=== PATIENT | male | born 1995 | race Caucasian/White ===

== ENCOUNTER → 2017-12-24 15:03 | Emergency (ER) | payer OTHER ==
[~2017-12-24 15:03] MED LIST: Ibuprofen TAB* 800 MG PO ONE
[2017-12-24 15:11] VITALS: BP 125/75
--- NOTE | 2017-12-24 17:02 | ED ---
Upper Extremity Pain - HPI Summary HPI Summary: Patient here with bilateral phalange pain status post getting hands caught in a windowsill is the window fell. He reports pain with abduction and abduction of his digits as well as flexion and extensionshe has bruising over the palmar and dorsal aspect of a few fingers with a laceration/abrasion/crush injury over the PIP joints of his right middle finger. Denies numbness tingling or weakness. TMs are up-to-date. Had ibuprofen around noon today - would like to have another. No previous injuries to hands/fingers and no other injuries to report today. - History of Current Complaint Chief Complaint: EDExtremityUpper Stated Complaint: INJURY TO HANDS Time Seen by Provider: 12/24/17 16:06 Hx Obtained From: Patient - Allergies/Home Medications Allergies/Adverse Reactions: Allergies Allergy/AdvReac Type Severity Reaction Status Date / Time No Known Allergies Allergy Verified 12/24/17 16:45 PMH/Surg Hx/FS Hx/Imm Hx Previously Healthy: Yes Endocrine/Hematology History: Denies: Hx Anticoagulant Therapy, Hx Blood Disorders - Immunization History Immunizations Up to Date: Yes Infectious Disease History: No Infectious Disease History: Denies: Traveled Outside the [place] in Last 30 Days - Family History Known Family History: Positive: None - Social History Occupation: Unemployed Lives: Dormitory/Roommates - assisted/nursing home x 4 months Alcohol Use: None Hx Substance Use: No Substance Use Type: Reports: None Hx Tobacco Use: Yes Smoking Status (MU): Current Every Day Smoker Amount Used/How Often: 4 cigs per day Review of Systems Constitutional: Negative Positive: no symptoms reported Positive: Arthralgia, Myalgia, Decreased ROM, Edema Positive: Bruising Neurological: Negative Psychological: Normal All Other Systems Reviewed And Are Negative: Yes Physical Exam Triage Information Reviewed: Yes Vital Signs On Initial Exam: Initial Vitals Temp Pulse Resp BP Pulse Ox 98.7 F 64 18 125/75 98 12/24/17 15:09 12/24/17 15:12/24/17 15:12/24/17 15:12/24/17 15:09 Vital Signs Reviewed: Yes Appearance: Positive: Well-Appearing, No Pain Distress, Well-Nourished Skin: Positive: Warm, Skin Color Reflects Adequate Perfusion, Dry Head/Face: Positive: Normal Head/Face Inspection Eyes: Positive: Normal, EOMI ENT: Positive: Hearing grossly normal Respiratory/Lung Sounds: Positive: Breath Sounds Present Cardiovascular: Positive: Pulses are Symmetrical in both Upper and Lower Extremities Musculoskeletal: Positive: Strength/ROM Intact - pain w/ flexion and full extension as well as adduction and abduction of fingers on B/L hands, Pain @ - areas with bruising are TTP, Other - carpals NTTP - FROM w/o pain. Negative: Limited @ Neurological: Positive: Normal, Sensory/Motor Intact, Alert, Oriented to Person Place, Time, CN Intact II-III Psychiatric: Positive: Normal Diagnostics - Vital Signs Vital Signs Temp Pulse Resp BP Pulse Ox 12/24/17 15:09 98.7 F 64 18 125/75 98 - Laboratory Lab Statement: Any lab studies that have been ordered have been reviewed, and results considered in the medical decision making process. Course/Dx - Diagnoses Provider Diagnoses: Finger contusion Discharge - Discharge Plan Condition: Stable Disposition: HOME Patient Education Materials: Contusion in Adults (ED) Referrals: Clarence MORRISON,J Luis Bishop [Primary Care Provider] - Additional Instructions: Rest, ice, elevate Take ibuprofen as needed for pain with food - may alternate with acetaminophen for pain Follow-up with medical staff in 1-2 weeks if pain persists *If you develop numbness, tingling, weakness in the meantime, seek medical attentions sooner
--- NOTE | 2017-12-24 17:44 | RAD ---
INDICATION: Bilateral hand pain COMPARISON: None TECHNIQUE: AP, lateral, and oblique views of each hand were obtained. FINDINGS: Left hand: The bony structures, joint spaces, and soft tissues are normal for age. Right hand: The bony structures, joint spaces, and soft tissues are normal IMPRESSION: NORMAL BILATERAL EXAMINATION.
== END | disposition home or self-care (01) ==
LOC: ED 15:03
DX: S60.022A Contusion of left index finger without damage to nail, initial encounter (principal); S60.021A Contusion of right index finger without damage to nail, initial encounter; S60.052A Contusion of left little finger without damage to nail, initial encounter; S60.051A Contusion of right little finger without damage to nail, initial encounter; S60.032A Contusion of left middle finger without damage to nail, initial encounter; S60.031A Contusion of right middle finger without damage to nail, initial encounter; S60.042A Contusion of left ring finger without damage to nail, initial encounter; S60.041A Contusion of right ring finger without damage to nail, initial encounter; S60.012A Contusion of left thumb without damage to nail, initial encounter; S60.011A Contusion of right thumb without damage to nail, initial encounter; W23.0XXA Caught, crushed, jammed, or pinched between moving objects, initial encounter; Y93.9 Activity, unspecified; Y92.9 Unspecified place or not applicable; F17.210 Nicotine dependence, cigarettes, uncomplicated
CPT/HCPCS: 99282; A9270-GY